=== PATIENT | male | born 2000 | race Caucasian/White ===

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

== ENCOUNTER 2021-05-13 10:10 | Emergency (ER) | payer OTHER ==
[~2021-05-13] VITALS: Ht 172.7 cm; Wt 86.2 kg
[~2021-05-13 10:10] MED LIST: CEFADROXIL500 M1 PO
== END 2021-05-13 12:51 | disposition home or self-care (01) ==
LOC: ED 10:10
DX: S62.351A Nondisplaced fracture of shaft of second metacarpal bone, left hand, initial encounter for closed fracture (principal); Z91.040 Latex allergy status; W51.XXXA Accidental striking against or bumped into by another person, initial encounter; Y93.89 Activity, other specified; Y92.89 Other specified places as the place of occurrence of the external cause; Y99.8 Other external cause status

== ENCOUNTER 2021-06-02 16:11 | Emergency (ER) | payer OTHER ==
[~2021-06-02] VITALS: Wt 81.6 kg
== END 2021-06-02 19:50 | disposition home or self-care (01) ==
LOC: ED 16:11
DX: S62.30 Unspecified fracture of other metacarpal bone (principal); Z79.2 Long term (current) use of antibiotics; W01.0XXD Fall on same level from slipping, tripping and stumbling without subsequent striking against object, subsequent encounter